=== PATIENT | female | born 1980 ===

== ENCOUNTER 2020-10-08 13:01 | Emergency (ER) | payer SELFPAY ==
[~2020-10-08] VITALS: Ht 175.3 cm; Wt 70.2 kg
[2020-10-08 14:51] LABS: BASOPHILS % (AUTO) 0 % (0-1); EOSINOPHILS % (AUTO) 0 % (1-7); LYMPHOCYTES % (AUTO) 15 % (22-44); MEAN CORPUSCULAR HEMOGLOBIN 31.2 pg (27.0-34.8); MEAN CORPUSCULAR HGB CONC 34.3 g/dL (32.4-35.8); MEAN PLATELET VOLUME 7.8 fL (7.4-10.4); MONOCYTES % (AUTO) 7 % (2-9); NEUTROPHILS % (AUTO) 77 % (42-75); PLATELET COUNT 265 x10^3/uL (130-400); RED BLOOD COUNT 4.12 x10^6/uL (3.82-5.3); RED CELL DISTRIBUTION WIDTH 13.6 % (9.6-15.2)
[2020-10-08 15:03] LABS: ALBUMIN 3.4 g/dL (3.4-5.0); ANION GAP 5 mmol/L (5-15); CALCIUM 8.7 mg/dL (8.5-10.1); CHLORIDE 108 mmol/L (98-107); CREATININE 0.79 mg/dL (0.55-1.02)
[2020-10-08 15:07] LABS: TROPONIN I < 0.015 ng/mL (0.000-0.045)
--- NOTE | 2020-10-08 16:32 | NUR ---
PHOTOGRAPHER'S MODEL: PT TO ROOM FROM LOBBY VIA W/C
--- NOTE | 2020-10-08 17:00 | NUR ---
PT HAS CO BILAT LOWER EXTREMITY SWELLING FROM STANDING AT JOB. EDCUATED PT ABOUT ELEVATION OF EXTREMITIES AND COMPRESSION STOCKINGS WHILE AT WORK
[2020-10-08 18:11] VITALS: BP 128/89
--- NOTE | 2020-10-08 18:12 | NUR ---
Patient given discharge instructions and they have confirmed that they understand the instructions. Patient ambulatory with steady gait.
== END 2020-10-08 18:14 | disposition home or self-care (01) ==
LOC: ED 17:45
DX: R60.0 Localized edema (principal); R00.0 Tachycardia, unspecified; R07.9 Chest pain, unspecified
CPT/HCPCS: 36415; 71045; 80048; 82040; 83880; 84484; 84703; 85025; 93005; 99285